=== PATIENT | female | born 2000 | race Caucasian/White ===

== ENCOUNTER 2018-02-06 13:45 | Emergency (ER) | payer BC ==
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
[2018-02-06 15:35] VITALS: BP 118/61
== END 2018-02-06 15:33 | disposition home or self-care (01) ==
DX: S09.90XA Unspecified injury of head, initial encounter (principal); W17.89XA Other fall from one level to another, initial encounter